=== PATIENT | male | born 1950 | race Caucasian/White ===

== ENCOUNTER 2017-09-12 11:41 | Inpatient (IN) | payer MEDICARE, MEDICAID ==
[~2017-09-12] VITALS: Ht 188 cm; Wt 154.0 kg
[2017-09-12] MEDS ORDERED: APIX5TAB PO (11:51)
[2017-09-12] MEDS ORDERED: VANCOMYCIN HCL 1 GM/D5% WATER 200 ML IV ONE (13:30)
[2017-09-12 14:19] LABS: BASOPHILS % (AUTO) 0.1 % (0.0-2.0); EOSINOPHILS % (AUTO) 1.1 % (1.0-6.0); HEMATOCRIT 32.9 % (41-53); HEMOGLOBIN 11.3 g/dL (13.5-17.5); LYMPHOCYTES # (AUTO) 1.1 K/uL (1.0-4.8); LYMPHOCYTES % (AUTO) 17.2 % (22.0-44.0); MEAN CORPUSCULAR HGB CONC 34.3 G/dL (31.0-37.0); MEAN CORPUSCULAR VOLUME 93 fL (80-100); MONOCYTES % (AUTO) 14.6 % (2.0-9.0); NEUTROPHILS # (AUTO) 4.5 K/uL (1.8-7.7); PLATELET COUNT (AUTO) 209 K/uL (150-450); RED BLOOD CELL COUNT(AUTO) 3.52 MIL/uL (4.50-5.90); RED CELL DISTRIBUTION WIDTH 14.9 % (11.5-14.5); WHITE BLOOD COUNT (AUTO) 6.7 K/uL (4.5-11.0)
[2017-09-12 14:29] LABS: CALCIUM, TOTAL 8.6 mg/dL (8.8-10.5); CREATININE 1.28 mg/dL (0.60-1.30)
[2017-09-12] MEDS ORDERED: ONDANSETRON HCL 4 MG/2 ML VIAL IVP ONE (14:30)
[2017-09-12] MEDS ORDERED: MORPHINE SULFATE 4 MG/ML SYRINGE IVP ONE (14:30)
[2017-09-12 14:36] LABS: ALBUMIN 2.9 g/dL (3.4-5.0); BILIRUBIN,TOTAL 0.3 mg/dL (0.1-1.0); TOTAL PROTEIN, SERUM 6.8 g/dL (6.4-8.2)
[2017-09-12 14:38] LABS: LACTIC ACID 0.5 mmol/L (0.4-2.0)
[2017-09-12] MEDS ORDERED: 0.9% SODIUM CHLORIDE 10 ML SYRINGE IVP PRN (14:45)
[2017-09-12] MEDS ORDERED: ACETAMINOPHEN 325 MG TABLET PO PRN (14:45)
[2017-09-12] MEDS ORDERED: ONDANSETRON HCL 4 MG/2 ML VIAL IVP PRN ×2 (14:45→15:45)
[2017-09-12] MEDS ORDERED: MAGNESIUM HYDROXIDE SUSPENSION 30 ML UDCUP PO PRN (15:45)
[2017-09-12] MEDS ORDERED: HYDROCODONE/ACETAMINOPHEN 5-325 MG TABLET PO PRN (15:45)
[2017-09-12] MEDS ORDERED: BISACODYL 10 MG RECTAL RECTAL SUPPOSITORY PR PRN (15:45)
[2017-09-12] MEDS ORDERED: ZOLPIDEM TARTRATE 5 MG TABLET PO PRN (15:45)
[2017-09-12] MEDS ORDERED: HEPARIN SODIUM,PORCINE 5,000 UNITS/ML VIAL SQ SCH (16:00)
[2017-09-12 16:54] VITALS: BP 125/72
[2017-09-12] MEDS: MORPHINE SULFATE 2 MG/ML SYRINGE IVP PRN (19:52)
[2017-09-12] MEDS: DOCUSATE SODIUM 100 MG CAPSULE PO SCH (19:52)
[2017-09-12] MEDS: APIXABAN 5 MG TABLET PO SCH (19:52)
[2017-09-12 19:53] VITALS: BP 114/74
[2017-09-12] MEDS ORDERED: SODIUM CHLORIDE 0.9% 500 ML IV ONE (23:56)
[2017-09-12 23:58] VITALS: BP_SYST 118; BP_SYST 124; BP_DIAS 68; BP_DIAS 76
[2017-09-13] MEDS ORDERED: VANCOMYCIN HCL 1.5 GM in DEXTROSE 5%-WATER 250 ML IV SCH ×2
[2017-09-13] MEDS: VANCOMYCIN HCL 1 GM/D5% WATER 200 ML IV SCH ×4 (00:06→23:09)
[2017-09-13 03:30] VITALS: BP 121/70
[2017-09-13 06:37] LABS: ANION GAP 4 mmol/L (8-16); CALCIUM, TOTAL 8.7 mg/dL (8.8-10.5); CARBON DIOXIDE 31 mmol/L (22-29); CHLORIDE 103 mmol/L (98-107); CREATININE 1.18 mg/dL (0.60-1.30); GLOMERULAR FILTR. RATE CALC > 60 mL/min (>60); POTASSIUM 4.7 mmol/L (3.5-5.1); SODIUM SERUM 138 mmol/L (136-145); UREA NITROGEN, BLOOD 21 mg/dL (7-18)
[2017-09-13 07:35] VITALS: BP 126/72
[2017-09-13] MEDS: APIXABAN 5 MG TABLET PO SCH ×2 (08:09→20:24)
[2017-09-13] MEDS: PANTOPRAZOLE SODIUM 40 MG DR TABLET PO SCH (08:09)
[2017-09-13] MEDS: DOCUSATE SODIUM 100 MG CAPSULE PO SCH ×2 (08:09→20:24)
[2017-09-13] MEDS: MULTIVITAMINS WITH MINERALS, THERAPEUTIC TABLET PO SCH (13:18)
[2017-09-13 15:39] VITALS: BP 123/63
[2017-09-13 20:57] VITALS: BP 121/72
[2017-09-13 23:03] VITALS: BP 127/74
[2017-09-13] MEDS: HYDROmorphone 2 MG/ML SYRINGE IVP PRN (23:03)
[2017-09-14] MEDS: HYDROmorphone 2 MG/ML SYRINGE IVP PRN ×2 (03:15→14:58)
[2017-09-14 03:18] VITALS: BP 148/89
[2017-09-14 07:10] LABS: ANION GAP 7 mmol/L (8-16); CALCIUM, TOTAL 8.8 mg/dL (8.8-10.5); CARBON DIOXIDE 28 mmol/L (22-29); CHLORIDE 102 mmol/L (98-107); CREATININE 0.98 mg/dL (0.60-1.30); GLOMERULAR FILTR. RATE CALC > 60 mL/min (>60); POTASSIUM 4.3 mmol/L (3.5-5.1); SODIUM SERUM 137 mmol/L (136-145); UREA NITROGEN, BLOOD 19 mg/dL (7-18)
[2017-09-14 07:22] VITALS: BP 131/67
[2017-09-14] MEDS: ACETIC ACID 0.25% 1000 ML IRRIGATION SOLUTION IRRIG SCH (08:59)
[2017-09-14] MEDS: PANTOPRAZOLE SODIUM 40 MG DR TABLET PO SCH (08:59)
[2017-09-14] MEDS: DOCUSATE SODIUM 100 MG CAPSULE PO SCH ×2 (08:59→20:31)
[2017-09-14] MEDS: VITAMINS A & D 60 GM OINTMENT TP SCH (08:59)
[2017-09-14] MEDS: MULTIVITAMINS WITH MINERALS, THERAPEUTIC TABLET PO SCH (08:59)
[2017-09-14] MEDS: VANCOMYCIN HCL 1 GM/D5% WATER 200 ML IV SCH ×2 (08:59→16:52)
[2017-09-14] MEDS: APIXABAN 5 MG TABLET PO SCH ×2 (08:59→20:31)
[2017-09-14 11:05] VITALS: BP 135/73
[2017-09-14 15:20] VITALS: BP 136/64
[2017-09-14] MEDS: PIPERACILLIN/TAZO 3.375 GM/D5W 50 ML IV SCH (20:27)
[2017-09-14 20:28] VITALS: BP 125/95
[2017-09-14] MEDS: MORPHINE SULFATE 2 MG/ML SYRINGE IVP PRN (20:30)
[2017-09-15] MEDS: ACETAMINOPHEN 325 MG TABLET PO PRN ×2 (00:03→04:36)
[2017-09-15] MEDS: HYDROmorphone HCL 2 MG TABLET PO PRN ×2 (00:06→08:57)
[2017-09-15] MEDS: VANCOMYCIN HCL 1 GM/D5% WATER 200 ML IV SCH ×2 (00:06→07:58)
[2017-09-15 00:10] VITALS: BP 138/98
[2017-09-15] MEDS: PIPERACILLIN/TAZO 3.375 GM/D5W 50 ML IV SCH ×2 (02:08→07:01)
[2017-09-15 04:25] VITALS: BP 141/93
[2017-09-15 06:11] LABS: ANION GAP 6 mmol/L (8-16); CALCIUM, TOTAL 8.8 mg/dL (8.8-10.5); CARBON DIOXIDE 29 mmol/L (22-29); CHLORIDE 102 mmol/L (98-107); CREATININE 1.08 mg/dL (0.60-1.30); GLOMERULAR FILTR. RATE CALC > 60 mL/min (>60); POTASSIUM 4.2 mmol/L (3.5-5.1); SODIUM SERUM 137 mmol/L (136-145); UREA NITROGEN, BLOOD 21 mg/dL (7-18)
[2017-09-15] MEDS ORDERED: SODIUM CHLORIDE 0.9% 250 ML IV ONE (06:56)
[2017-09-15 07:22] VITALS: BP 123/82
[2017-09-15] MEDS: MULTIVITAMINS WITH MINERALS, THERAPEUTIC TABLET PO SCH (07:58)
[2017-09-15] MEDS: DOCUSATE SODIUM 100 MG CAPSULE PO SCH (07:58)
[2017-09-15] MEDS: PANTOPRAZOLE SODIUM 40 MG DR TABLET PO SCH (07:58)
[2017-09-15] MEDS: APIXABAN 5 MG TABLET PO SCH (07:58)
[2017-09-15] MEDS: ACETIC ACID 0.25% 1000 ML IRRIGATION SOLUTION IRRIG SCH (07:59)
[2017-09-15] MEDS: VITAMINS A & D 60 GM OINTMENT TP SCH (07:59)
[2017-09-15] MEDS ORDERED: LEVOFLOXACIN 500 MG TABLET PO SCH (09:00)
[2017-09-15 11:17] VITALS: BP 141/95
== END 2017-09-15 14:15 | DRG 603 ==
LOC: EMS 11:41 → 6N 15:01
PROVIDERS: ADMIT Internal Medicine; ATTEND Internal Medicine
DX: L03.115 Cellulitis of right lower limb (principal); E44.0 Moderate protein-calorie malnutrition; E66.01 Morbid (severe) obesity due to excess calories; F11.20 Opioid dependence, uncomplicated; Z68.41 Body mass index [BMI] 40.0-44.9, adult; L03.116 Cellulitis of left lower limb; B96.5 Pseudomonas (aeruginosa) (mallei) (pseudomallei) as the cause of diseases classified elsewhere; D64.9 Anemia, unspecified; I73.9 Peripheral vascular disease, unspecified; Z85.828 Personal history of other malignant neoplasm of skin; Z79.899 Other long term (current) drug therapy
CPT/HCPCS: 83605; 87040; 87070; 87205; 96365; 96375; 99285; J1170; J2270; J2405; J2543; J3370; J7040; J7050; J7060